=== PATIENT | female | born 1955 | race Caucasian/White ===

== ENCOUNTER 2016-12-20 14:47 | Emergency (ER) | payer OTHER ==
[~2016-12-20] VITALS: Ht 162.6 cm; Wt 96.1 kg
[~2016-12-20 14:47] MED LIST: BUPR-79 PO; CITA40TA12 PO; HYDR25TA4 PO; MELO7.5T5 PO; SIMV40TA2 PO
[2016-12-20 15:05] VITALS: TEMP 36.9; Ht 162.6 cm; Wt 96.1 kg
[2016-12-20] MEDS ORDERED: ALBUT/IPRATROP 3MG/0.5MG NEB 3 ML VIAL INH STA ×2 (15:51→17:41)
--- NOTE | 2016-12-20 17:05 | DIAGNOSTIC IMAGING REPORT ---
CHEST 2 VIEWS ROUTINE HISTORY: Short of breath. COMPARISON: None. FINDINGS: No focal lung consolidations to suggest pneumonia. There is a moderate hiatus hernia. The heart is normal in size. No pleural effusions. No pneumothorax. A few linear densities the left lung base favor subsegmental atelectasis are scarring. IMPRESSION: No acute process within the chest. Moderate hiatus hernia. Electronically signed by: Navi Thapa M.D. 12/20/2016 5:04 PM Dictated Date/Time: 12/20/2016 5:03 PM
[2016-12-20] MEDS ORDERED: METHYLPREDNISOLONE 125 MG VIAL IV STA (17:41)
[2016-12-20 17:59] VITALS: O2SAT 96
[2016-12-20 18:10] LABS: BASO % 1.1 %; BASO ABS # 0.04 K/uL (0-0.2); COMPLETE YES; EOS % 4.1 %; HEMATOCRIT 32.7 % (37-47); LYMPH % 32.2 %; LYMPH ABS # 1.19 K/uL (1.2-3.4); MEAN CELL VOLUME 78.8 fL (80-100); MEAN CORPUSCULAR HEMOGLOBIN 25.8 pg (25-34); MEAN CORPUSCULAR HGB CONC 32.7 g/dl (32-36); MEAN PLATELET VOLUME 9.2 fL (7.4-10.4); MONO % 13.5 %; NEUT % 49.1 %; PLATELET COUNT 175 K/uL (130-400); RED BLOOD COUNT 4.15 M/uL (4.2-5.4)
[2016-12-20 18:18] LABS: PARTIAL THROMBOPLASTIN RATIO 0.9; PROTHROMBIN TIME (PATIENT) 10.9 SECONDS (9.0-12.0)
[2016-12-20 18:25] LABS: BUN/CREATININE RATIO 14.3 (10-20); CALCIUM 8.2 mg/dl (8.5-10.1); CREATININE 0.97 mg/dl (0.60-1.20)
[2016-12-20] MEDS ORDERED: ALBUTEROL HFA 8 GM INHALER INH STA (18:35)
[2016-12-20] MEDS ORDERED: DOXY100C2 PO (18:39)
[2016-12-20] MEDS ORDERED: PRED20TA PO (18:39)
[2016-12-20] MEDS ORDERED: AZITHROMYCIN 250 MG TAB PO ONE (18:45)
[2016-12-20] MEDS ORDERED: DOXYCYCLINE HYCLATE 100 MG CAP PO ONE (18:45)
[2016-12-20 18:58] VITALS: BP 165/97; PULSE 98; O2SAT 99
--- NOTE | 2016-12-20 20:55 | EMERGENCY ROOM VISIT NOTE ---
History Report prepared by Nicky: Francesca Feliciano Under the Supervision of: Dr. Reyes Burks M.D. First contact with patient: 15:46 Chief Complaint: RESPIRATORY PROBLEMS Stated Complaint: CP, SOB Nursing Triage Summary: pt has "cold that settled in chest last few days" productive cough History of Present Illness The patient is a 61 year old female who presents to the Emergency Room with complaints of a persistent cough over the past several days. She notes that it is occasionally productive with either clear or yellow/green sputum. She also complains of some central chest pain and bilateral rib pain, which are worse with coughing. She feels like she is out of breath when she is in the cold outside. The patient notes that she initially developed ear aches, congestion, and a sore throat 4 weeks ago which have recently improved. She does not have a history of asthma or COPD. She is a former smoker. The patient's parents had a history of heart disease at an older age. Denies fever, leg swelling or pain or other complaints. Source of History: patient Onset: several days ago Position: other (global) Quality: other (productive on occasion) Timing: other (persistent) Associated Symptoms: + chest pain, No fevers Note: Other symptoms: bilateral rib pain Review of Systems See HPI for pertinent positives & negatives. A total of 10 systems reviewed and were otherwise negative. Past Medical & Surgical Medical Problems: (1) Depression (2) Diverticulitis (3) Hyperlipidemia (4) Hypertension Family History Heart disease Social History Smoking Status: Former Smoker Marital Status: single Housing Status: lives with family Occupation Status: employed Current/Historical Medications Scheduled Bupropion (Wellbutrin Sr), 150 MG PO BID Citalopram Hydrobromide (Celexa), 40 MG PO DAILY Doxycycline Hyclate (Vibramycin), 100 MG PO BID Hydrochlorothiazide (Hctz), 25 MG PO DAILY Prednisone (Prednisone), 3 TAB PO DAILY Simvastatin (Zocor), 40 MG PO QPM Scheduled PRN Meloxicam (Mobic), 7.5 MG PO DAILY PRN for UD Allergies Coded Allergies: No Known Allergies (Unverified , 12/20/16) pt Physical Exam Vital Signs Date Time Temp Pulse Resp B/P Pulse Ox O2 Delivery O2 Flow Rate FiO2 12/20/16 18:58 98 18 165/97 99 12/20/16 18:09 88 12/20/16 18:08 89 18 183/122 100 Nebulizer 8.0 12/20/16 17:59 96 Room Air 12/20/16 16:13 96 Room Air 12/20/16 16:05 99 20 174/104 99 Nebulizer 7.0 12/20/16 15:05 36.9 94 20 149/81 94 Room Air Physical Exam Constitutional: Vital signs reviewed. Eyes: Pupils are equal round reactive to light. Conjunctiva are noninjected. ENT: Pharynx is clear without erythema or exudate. Mucous membranes are moist. Neck supple without meningeal signs. Respiratory: Diffuse expiratory wheezing to auscultation bilaterally. Breath sounds are equal bilaterally. Cardiovascular: Regular rate and rhythm. No rubs or gallops. GI: Soft, nondistended and nontender. Bowel sounds are present. Musculoskeletal: No peripheral edema. No lower extremity tenderness. Sternal and bilateral rib tenderness to palpation. Integumentary: No cyanosis. Neurological: The patient is awake and alert. No focal deficits. Psychiatric: Normal affect. Medical Decision & Procedures ER Provider Diagnostic Interpretation: X-ray results as stated below per interpretation by me and the radiologist: CHEST 2 VIEWS ROUTINE HISTORY: Short of breath. COMPARISON: None. FINDINGS: No focal lung consolidations to suggest pneumonia. There is a moderate hiatus hernia. The heart is normal in size. No pleural effusions. No pneumothorax. A few linear densities the left lung base favor subsegmental atelectasis are scarring. IMPRESSION: No acute process within the chest. Moderate hiatus hernia. Electronically signed by: Navi Thapa M.D. 12/20/2016 5:04 PM Dictated Date/Time: 12/20/2016 5:03 PM Laboratory Results 12/20/16 17:58 Red Blood Count 4.15, Mean Corpuscular Volume 78.8, Mean Corpuscular Hemoglobin 25.8, Mean Corpuscular Hemoglobin Concent 32.7, Mean Platelet Volume 9.2, Neutrophils (%) (Auto) 49.1, Lymphocytes (%) (Auto) 32.2, Monocytes (%) (Auto) 13.5, Eosinophils (%) (Auto) 4.1, Basophils (%) (Auto) 1.1, Neutrophils # (Auto ) 1.82, Lymphocytes # (Auto) 1.19, Monocytes # (Auto) 0.50, Eosinophils # (Auto ) 0.15, Basophils # (Auto) 0.04 12/20/16 17:58 Test 12/20/16 17:58 12/20/16 18:05 White Blood Count 3.70 K/uL (4.8-10.8) Red Blood Count 4.15 M/uL (4.2-5.4) Hemoglobin 10.7 g/dL (12.0-16.0) Hematocrit 32.7 % (37-47) Mean Corpuscular Volume 78.8 fL (80-100) Mean Corpuscular Hemoglobin 25.8 pg (25-34) Mean Corpuscular Hemoglobin Concent 32.7 g/dl (32-36) Platelet Count 175 K/uL (130-400) Mean Platelet Volume 9.2 fL (7.4-10.4) Neutrophils (%) (Auto) 49.1 % Lymphocytes (%) (Auto) 32.2 % Monocytes (%) (Auto) 13.5 % Eosinophils (%) (Auto) 4.1 % Basophils (%) (Auto) 1.1 % Neutrophils # (Auto) 1.82 K/uL (1.4-6.5) Lymphocytes # (Auto) 1.19 K/uL (1.2-3.4) Monocytes # (Auto) 0.50 K/uL (0.11-0.59) Eosinophils # (Auto) 0.15 K/uL (0-0.5) Basophils # (Auto) 0.04 K/uL (0-0.2) RDW Standard Deviation 43.0 fL (36.4-46.3) RDW Coefficient of Variation 15.0 % (11.5-14.5) Immature Granulocyte % (Auto) 0.0 % Immature Granulocyte # (Auto) 0.00 K/uL (0.00-0.02) Prothrombin Time 10.9 SECONDS (9.0-12.0) Prothromb Time International Ratio 1.0 (0.9-1.1) Activated Partial Thromboplast Time 24.3 SECONDS (21.0-31.0) Partial Thromboplastin Ratio 0.9 Anion Gap 8.0 mmol/L (3-11) Est Creatinine Clear Calc Drug Dose 66.8 ml/min Estimated GFR () 72.0 Estimated GFR (Non- 62.2 BUN/Creatinine Ratio 14.3 (10-20) Calcium Level 8.2 mg/dl (8.5-10.1) Bedside Troponin I 0.000 ng/ml (0-0.045) Laboratory results as reviewed by me. Medications Administered Medications (Trade) Dose Ordered Sig/Alicia Route Start Time Stop Time Status Last Admin Dose Admin Albuterol/ Ipratropium (Duoneb) 3 ml NOW STAT INH 12/20/16 15:51 12/20/16 15:53 DC 12/20/16 16:02 3 ML Albuterol/ Ipratropium (Duoneb) 3 ml NOW STAT INH 12/20/16 17:41 12/20/16 17:43 DC 12/20/16 18:04 3 ML Methylprednisolone Sodium Succinate (Solu-Medrol IV) 125 mg NOW STAT IV 12/20/16 17:41 12/20/16 17:43 DC 12/20/16 18:04 125 MG Albuterol (Ventolin Hfa Inhaler) 2 puffs NOW STAT INH 12/20/16 18:35 12/20/16 18:37 DC 12/20/16 18:57 2 PUFFS Doxycycline Hyclate (Vibramycin Cap) 100 mg ONE ONCE PO 12/20/16 18:45 12/20/16 18:46 DC 12/20/16 18:57 100 MG ECG Indication: chest pain Rate (beats per minute): 84 Rhythm: normal sinus Findings: no acute ischemic change, no ectopy, other (no ST elevation) ED Course 1556: The patient was evaluated in room C4. A complete history and physical exam was performed. 1551: Ordered DuoNeb 3 ml INH. 1740: I reassessed the patient. She was still wheezing on exam.Ordered Solu- Medrol 125 mg IV, DuoNeb 3 ml INH. 1830: I reassessed the patient. She was feeling better. She was still wheezing on exam, but she feels well enough to go home. She will follow up with her doctor in 2 days. She was hypertensive but states that she did not take her medications this morning and will take them when she gets home. The patient will be discharged home. 1835: Ordered Albuterol 2 puffs INH. 1845: Ordered Vibramycin Cap 100 mg PO. Medical Decision This is a 61-year-old female who presents with productive cough, fever and reproducible chest pain. Differential diagnosis includes pneumonia, bronchitis , COPD, pleurisy, pericarditis. I did perform a limited focused review of portions of the patient's old chart on the electronic medical record. The patient has had no recent pertinent visits to this hospital. I did evaluate the patient as noted above. The patient is presenting with a productive cough with fever and reproducible chest wall pain. She is wheezing on examination here she is a prior smoker but has not smoked in a long time. I did treat the patient with an albuterol and Atrovent nebulizer. On reexamination she continues to have wheezing and was given another DuoNeb. IV access was established. The patient was placed on a continuous ski topper. I did treat her with Solu-Medrol IV. I did order and personally review the patient's 12-lead EKG and chest x-ray as described above. She has no signs of acute ischemia or pericarditis on 12 EKG. Her chest x-ray is negative for pneumonia. I did order and review the patient's blood work as noted in the electronic medical record. Troponin is negative. Her potassium is slightly low but this is likely secondary to the shift of potassium intracellularly secondary to the albuterol she still has wheezing on examination rather than a completion of potassium. I did reassess the patient. She states that she is feeling much better. She does feel well enough to go home. I did discuss the test results with her. She was treated with doxycycline here. She was given a prescription for doxycycline and prednisone. She was also given an albuterol MDI. She was advised to follow closely with her doctor within the next 24-48 hours. She was discharged in good condition. Impression Primary Impression: RAD (reactive airway disease) Additional Impressions: Bronchitis with bronchospasm Chest wall pain Hypertension Scribe Attestation The scribe's documentation has been prepared under my direct and personally reviewed by me in its entirety. I confirm that the note above accurately reflects all work, treatment, procedures, and medical decision making performed by me. Departure Information Dispostion Home / Self-Care Prescriptions Doxycycline Hyclate (VIBRAMYCIN) 100 Mg Cap 100 MG PO BID for 10 Days, #20 CAP Prov: Reyes Burks M.D. 12/20/16 Prednisone (Prednisone) 20 Mg Tab 3 TAB PO DAILY, #12 TAB FOR 4 DAYS Prov: Reyes Burks M.D. 12/20/16 Referrals Margi Rowan C.R.N.P (PCP) Patient Instructions ED Bronchitis Abx Tx, [facility] Additional Instructions You have been examined and treated today on an emergency basis only. This is not a substitute for, or an effort to provide, complete comprehensive medical care. It is impossible to recognize and treat all injuries or illnesses in a single emergency department visit. It is therefore important that you follow up closely with your physician in 24-48 hours. Call as soon as possible for an appointment. Return for worsening symptoms or if you develop vomiting, or any other concerning symptoms. Problem Qualifiers
== END 2016-12-20 19:00 | disposition home or self-care (01) ==
LOC: C.EDB 14:48 → C.EDC 19:00
DX: J45.909 Unspecified asthma, uncomplicated (principal); J40 Bronchitis, not specified as acute or chronic; R07.89 Other chest pain; I10 Essential (primary) hypertension; E78.5 Hyperlipidemia, unspecified; F32.9 Major depressive disorder, single episode, unspecified; K57.92 Diverticulitis of intestine, part unspecified, without perforation or abscess without bleeding; Z79.899 Other long term (current) drug therapy; Z87.891 Personal history of nicotine dependence; Z82.49 Family history of ischemic heart disease and other diseases of the circulatory system

== ENCOUNTER → 2018-07-01 | Outpatient (CLI) | payer OTHER ==
[~2018-07-01] MED LIST changes: +DOXY100C2 PO
--- NOTE | 2018-07-05 07:00 | MAMMOGRAPHY REPORT ---
BILATERAL DIGITAL SCREENING MAMMOGRAM TOMOSYNTHESIS WITH CAD: 07/01/2018 CLINICAL HISTORY: Routine screening. TECHNIQUE: The study was acquired using full field digital technology and interpreted from soft copy. Breast tomosynthesis in addition to standard 2D mammography was performed. Current study was also ev aluated with a Computer Aided Detection (CAD) system. COMPARISON: Comparison is made to exams dated: 04/09/2015 mammogram, 04/02/2014 mammogram, 03/17/2013 ma mmogram - [facility], and 08/09/2008. BREAST COMPOSITION: There are scattered areas of fibroglandular density in both breasts. FINDINGS: No suspicious masses, calcifications, or areas of architectural distortion are noted in either breast . There has been no significant interval change compared to prior exams. IMPRESSION: ACR BI-RADS CATEGORY 1: NEGATIVE There is no mammographic evidence of malignancy. A 1 year screening mammogram is recommended.( 019) The patient will receive written notification of the results. Some breast cancers are not detected with mammography. A negative mammographic report should not nay y biopsy if a clinically suggestive mass is present. Cathie Leong M.D. ah/:07/01/2018 15:28:01 [employer]: RT Lakisha(Vane)(M), [facility] letter sent: Normal 1/2 BI-RADS Code: ACR BI-RADS Category 1: Negative
== END | disposition home or self-care (01) ==
LOC: C.MAMM 14:48
PROVIDERS: ATTEND Nurse Practitioner
DX: Z12.31 Encounter for screening mammogram for malignant neoplasm of breast (principal)